=== PATIENT | female | born 2000 | race Caucasian/White ===

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

== ENCOUNTER 2025-05-20 12:31 | Emergency (ER) | payer OTHER, SELFPAY ==
[2025-05-20] VITALS (10 sets, daily range): BP systolic 109–124; BP diastolic 66–75; PULSE 94–122; RESP 17–21; TEMP 37.1; O2SAT 95–99; BMI 20.2
[2025-05-20 13:19] LABS: Culture Indicated Urine Cult Not Indicated; Ictotest Urine Negative (Negative)
--- NOTE | 2025-05-20 13:22 | ED_ITS ---
HPI - Abdominal Pain General Chief Complaint: Abdominal Pain Stated Complaint: constipated 6days blood in stool rash chills Time Seen by Provider: 05/20/25 13:22 Source: patient Mode of arrival: Ambulatory History of Present Illness HPI narrative: Patient is a 25-year-old female with a past medical history of ulcerative colitis currently on budesonide coming in for abdominal pain. States she is having a flare-up, endorses abdominal pain nausea chills and some bright red blood per rectum. Patient states she normally is on Stelara but has been off of it secondary to insurance issues, states that she last took it 2-1/2 months ago. However she states that this has been resolved and is supposed to get it in the mail in the next few weeks. She also states some chills and intermittent fevers. At time of evaluation however patient afebrile nontoxic, she denies any surgeries to the abdomen. Related Data Home Medications ?Medication ?Instructions ?Recorded ?Confirmed mesalamine 400 mg capsule (with 400 mg PO QPM 11/09/18 11/09/18 delayed release tablets inside) Previous Rx's ?Medication ?Instructions ?Recorded typhoid vaccin,live,attenuated 2 See Rx Instructions P O .COMPLEX #4 11/09/18 billion unit capsule,delayed caps release ondansetron 4 mg disintegrating 4 mg PO Q8H PRN nausea and 05/20/25 tablet vomiting 1 week #21 tabs prednisone 20 mg tablet 40 mg (2 x 20 mg) PO DAILY 2 weeks 05/20/25 #28 tabs Allergies Allergy/AdvReac Type Severity Reaction Status Date / Time No Known Drug Allergies Allergy Verified 05/20/25 12:50 Review of Systems Review of Systems Narrative: General: Denies fever, chills, weight loss HEENT: Denies headache, eye drainage, eye irritation, head trauma, sore throat, voice change Cardiovascular: Denies any chest pain, palpitations, tachycardia Respiratory: Denies any shortness of breath, cough, wheeze, stridor GI/: Positive abdominal pain, nausea, vomiting, bright red blood per rectum, denies melanotic stools, urinary frequency, urinary retention, dysuria, hematuria MSK: Denies any joint pain, muscle pains, swelling Skin: Denies any rashes, lesions, discoloration Neuro: Denies any headache, lightheadedness, dizziness, fainting, weakness Psych: Denies SI/HI Patient History Medical History (Updated 05/20/25 @ 14:54 by Arnav Marrero DO) Ulcerative colitis Social History Smoking Status: Never smoker Smoking Status: Never smoker Exam Narrative Exam Narrative: General: Cooperative, well-developed, not in acute distress HEENT: Normocephalic, atraumatic, PERRLA, normal sclera, eyelids normal Neck: Active full range of motion, atraumatic Chest: Normal to inspection, negative crepitus, no overlying erythema ecchymosis Respiratory: Normal respiratory effort, not in acute respiratory distress, clear to auscultation bilaterally negative cough, wheeze, tachypnea, rhonchi, rales Cardiology: Regular rate rhythm negative gallop, murmur, rubs GI/: No tenderness to palpation, soft, non rigid, normal to inspection, exam deferred MSK: Full active range of motion in all 4 extremities, atraumatic, no tenderness to palpation of any bony prominences Skin: No rashes or lesions noted Neuro: Alert awake oriented x3, moves all 4 extremities spontaneously, cranial nerves intact, able to answer all questions appropriately follows commands appropriately Psych: Cooperative, negative suicidal or homicidal ideations Initial Vital Signs Initial Vital Signs: Vital Signs Temperature 98.8 F 05/20/25 12:46 Pulse Rate 122 H 05/20/25 12:46 Respiratory Rate 18 05/20/25 12:46 Blood Pressure 112/68 05/20/25 12:46 Pulse Oximetry 96 05/20/25 12:46 Oxygen Delivery Method Room Air 05/20/25 12:46 Course Orders Ordered: ED Orders 05/20/25 13:00 Ictotest Urine Stat Urine Microscopic Stat 05/20/25 13:24 CT abdomen pelvis w con Stat 05/20/25 13:28 GI Panel (Film Array) Stat 05/20/25 13:36 Complete Blood Count AUTO DIFF Stat Comprehensive Metabolic Panel Stat Lactate (Lactic Acid) Stat Lipase Stat MAG [Magnesium] Stat 05/20/25 13:48 Respiratory Panel (Film Array) Stat 05/20/25 14:20 Blood Culture Stat Ondansetron HCl (Ondansetron 4 Mg/2 Ml Inj) 4 mg IV NOW PRN PRN Reason: Nausea And Vomiting Ondansetron HCl (Ondansetron 4 Mg Odt) 4 mg PO NOW PRN PRN Reason: Nausea And Vomiting Discontinued Medications Sodium Chloride (Normal Saline 0.9%) 1,000 mls @ 1,000 mls/hr IV BOLUS ONE Stop: 05/20/25 14:23 Last Admin: 05/20/25 13:44 Dose: 1,000 mls/hr Documented By: WINNIE Vital Signs Vital signs: Vital Signs - 8 hr 05/20/25 12:46 05/20/25 13:53 05/20/25 13:58 Temperature 98.8 F Pulse Rate 122 H 114 H Respiratory Rate 18 Blood Pressure 112/68 124/72 Pulse Oximetry 96 98 Oxygen Delivery Method Room Air 05/20/25 13:58 05/20/25 14:00 05/20/25 14:00 Temperature Pulse Rate 106 H 98 H Respiratory Rate 19 19 Blood Pressure 116/69 Pulse Oximetry 98 99 Oxygen Delivery Method Room Air 05/20/25 14:30 05/20/25 14:30 Temperature Pulse Rate 98 H Respiratory Rate 17 Blood Pressure 109/73 Pulse Oximetry 96 Oxygen Delivery Method MDM - Abdominal Pain Lab Data 05/20/25 13:36 05/20/25 13:36 Labs: Lab Results 05/20/25 05/20/25 05/20/25 Range/Units 13:00 13:36 13:48 WBC 16.6 H (4.5-11.0) X10^3/uL RBC 4.92 (4.0-5.2) X10^6/uL Hgb 13.1 (12.0-16.0) g/dL Hct 38.2 (36-46) % MCV 77.7 L (80-100) fL MCH 26.6 (26-34) PG MCHC 34.3 (30-36) % RDW 13.3 (11.6-14.8) % Plt Count 295 (150-400) X10^3/uL Neut % (Auto) 81.3 H (50-75) % Lymph % (Auto) 7.5 L (25-40) % [place] % (Auto) 6.6 (3-14) % Eos % (Auto) 3.2 (2-4) % Baso % (Auto) 1.4 (0-2) % Neut # (Auto) 72797 H (0095-6874) /uL Lymph # (Auto) 1200 (2580-5584) /uL [place] # (Auto) 1100 H (0-900) /uL Eos # (Auto) 500 H (0-450) /uL Baso # (Auto) 200 H (0-100) /uL Sodium 132 L (137-145) mmol/L Potassium 3.3 L (3.4-5.1) mmol/L Chloride 97 L (98-107) mmol/L Carbon Dioxide 23 (22-32) mmol/L BUN 8 (7-17) mg/dL Creatinine 0.59 (0.52-1.04) mg/dL Estimated GFR > 60 (>60) mL/min BUN/Creatinine Ratio 13.6 (6-22) Glucose 99 (70-99) mg/dL Lactate 0.7 (0.7-2.1) mmol/L Calcium 8.5 (8.4-10.2) mg/dL Magnesium 1.8 (1.6-2.3) mg/dL Total Bilirubin 0.6 (0.2-1.3) mg/dL AST 22 (14-36) IU/L ALT 12 (<35) IU/L Alkaline Phosphatase 88 (38-126) U/L Total Protein 7.3 (6.3-8.2) g/dL Albumin 3.7 (3.5-5.0) g/dL Globulin 3.6 (1.7-4.1) g/dL Albumin/Globulin Ratio 1.0 (1.0-2.8) Lipase 33 (23-300) U/L Ur Bilirubin Confirm Negative (Negative) Urine RBC 0-1/hpf (0-5/HPF) Urine WBC 0-1/hpf (0-5/HPF) Ur Squamous Epith Cells 0-1 /hpf (0-5/HPF) Amorphous Sediment 1+ Urine Bacteria Occasional (0-1) (None) Urine Mucus 4+ H (Negative) Ur Culture Indicated? Cult not indicated Vol Urine Centrifuged 10ml (spun) Chlamy pneumoniae PCR Not detected (Not Detect) Adenovirus (PCR) Not detected (Not Detect) B. pertussis DNA (PCR) Not detected (Not Detect) B.parapertussis DNA PCR Not detected (Not Detecte) Coronavirus OC43 (PCR) Not detected (Not Detect) Coronavirus HKU1 (PCR) Not detected (Not Detect) Coronavirus 229E (PCR) Not detected (Not Detect) SARS-CoV-2 (PCR) Not detected (Not Detecte) Coronavirus NL63 (PCR) Not detected (Not Detect) Human Metapneumovir PCR Not detected (Not Detect) Influenza Type A (PCR) Not detected (Not Detect) Influenza Type B (PCR) Not detected (Not Detect) M. pneumoniae (PCR) Not detected (Not Detect) Parainfluenza 1 (PCR) Not detected (Not Detect) Parainfluenza 2 (PCR) Not detected (Not Detect) Parainfluenza 3 (PCR) Not detected (Not Detect) Parainfluenza 4 (PCR) Not detected (Not Detect) RSV (PCR) Not detected (Not Detect) Entero/Rhino (PCR) Not detected (Not Detect) Point of care testing: Point of Care Testing Test Results Negative Urine Dip Bedside Urine Glucose Negative Bedside Urine Bilirubin + 1 Bedside Urine Ketone +++ 80 Urine Specific [place] 1.020 Bedside Urine Occult Blood +/- Bedside Urine pH 6.0 Bedside Urine Protein + 30 Bedside Urine Urobilinogen +/- 1mg Bedside Urine Nitrite - Negative Bedside Urine Leukocytes - Negative Esterase MDM Narrative Medical decision making narrative: 25-year-old female with a history of ulcerative colitis currently on budesonide comes into the ED from home for evaluation multiple complaints. Patient states that she has been having a flare-up over the past 3 days has been having some bright red blood per rectum with mucus typical of an ulcerative colitis flare. She states that she did contact her GI doctor does have Stelara on the way. States that this is helped her in the past but has been off of it for a proximally 2-1/2 months secondary to issues with insurance. She also states that she has been having fevers and chills for the past 3 days as well. She denies any headache visual disturbances chest pain shortness of breath nausea vomiting or any other GI/ symptoms at this time. Patient's CT scan consistent with colitis no other acute findings, patient does have a white count of 16.6, otherwise the remainder of her lab work is unremarkable. Urinalysis not consistent with acute urinary tract infection. 1453: Did discuss with sanding machine operator or tender Dr. Espana, does agree that patient's current imaging and lab work more likely secondary to ulcerative colitis flare- up, does agree should rule out any other infectious causes. However given the fact that CT scan showing more colitis patient should be started on prednisone 40 mg daily for the next 2 weeks. 1437: Patient re-evaluated no new complaints at this time, informed her of her workup has consistent more so with the colitis. Patient's GI panel negative, we will discharge patient home with prednisone and instructed patient to follow up with her GI doctor and primary care doctor. Strict return precautions given she verbalized understanding of this and agrees to being discharged home with outpatient follow up Discharge Plan Departure Patient Disposition: Home Clinical Impression: Ulcerative colitis Activity Restrictions/Additional Instructions: Please follow up with your primary care doctor and your sanding machine operator or tender Please read the discharge instructions sheet carefully and bring all papers to all doctor follow-up visits, as it may contain information that your doctor may want to see. Disease processes change and evolve, if your symptoms worsen or if you develop any new symptoms that are concerning to you please return for evaluation. Your evaluation today does not show any evidence of any life- threatening/serious illnesses requiring admission to the hospital or surgery. Please follow-up with your doctor for re-evaluation in approximately 1 day. Seek immediate medical attention for any worrisome symptoms. *If you do not have a primary care provider please contact the [facility] Resource line at [phone]. They will ask some questions about your medical history and help get you set up with a doctor in the community. Prescriptions: New prednisone 20 mg tablet 40 mg PO DAILY 14 Days Qty: 28 0RF ondansetron 4 mg tablet,disintegrating 4 mg PO Q8H PRN (Reason: nausea and vomiting) 7 Days Qty: 21 0RF No Action mesalamine 400 mg capsule (with del rel tablets) 400 mg PO QPM typhoid vaccin,live,attenuated 2 billion unit capsule,delayed release(DR/EC) See Rx Instructions PO .COMPLEX Qty: 4 0RF Dose Instruction: take 1 cap every other day for 4 doses (days 1,3,5,7); finish at least 1wk before exposure PO Rx Instructions: take 1 cap every other day for 4 doses (days 1,3,5,7); finish at least 1wk before exposure PO Referrals: Shelby Jean MD [Primary Care Provider, Family Practice] Stand Alone Forms: Patient Portal/API
--- NOTE | 2025-05-20 13:24 | DI.CT.S_ITS ---
PROCEDURE: CT ABDOMEN PELVIS W CON INDICATIONS: Abdominal pain, history of ulcerative colitis TECHNIQUE: After the administration of intravenous contrast, axial sections acquired from the lung bases to the pubic symphysis. Coronal and sagittal reformats were performed. For radiation dose reduction, the following was used: automated exposure control, adjustment of mA and/or kV according to patient size. COMPARISON: None. FINDINGS: Image quality: Diagnostic. Lower Chest: No significant findings. ABDOMEN: Liver: No solid mass. Gallbladder: No radiopaque gallstones or wall thickening. Biliary ducts: No biliary dilation. Pancreas: No ductal dilation. Spleen: Size is within normal limits. Adrenal Glands: No adrenal nodules. Kidneys and Ureters: No hydronephrosis. No solid mass. No complex renal cystic lesion which requires follow up. Stomach and Bowel: Bowel is of normal caliber without obstruction. The left lashell from the midtransverse colon distally demonstrates wall thickening and mucosal hyperemia which is circumferential. Peritoneum: No abnormal intraperitoneal fluid. No free air. Numerous scattered tiny mesenteric lymph nodes are shown. Ventral Wall: No significant ventral hernia. Abdominal Nodes: No retroperitoneal or mesenteric adenopathy by size criteria. Vessels: Aorta and inferior vena cava are normal in size. PELVIS: Pelvic Organs: Unremarkable. Bladder: No bladder wall thickening, accounting for underdistention. Pelvic Nodes: No enlarged lymph nodes. Miscellaneous: No inguinal hernias are seen. Bones: No aggressive osseous abnormality. IMPRESSION: Findings of colitis consistent with the patient's given history. Dictated by: Chel Bell M.D. on 05/20/2025 at 12:53 Approved by: Chel Bell M.D. on 05/20/2025 at 12:57
[2025-05-20] MEDS: SODIUM CHLORIDE 0.9% 1,000 ML 1000 ML IV (13:44)
[2025-05-20 13:51] LABS: Add Manual Diff / Slide Review NO; Hematocrit 38.2 % (36-46); Hemoglobin 13.1 g/dL (12.0-16.0); Lymphocytes Absolute Auto 1200 /uL (1100-4500); Mean Corpuscular HGB Conc 34.3 % (30-36); Mean Corpuscular Hemoglobin 26.6 PG (26-34); Mean Corpuscular Volume 77.7 fL (80-100); Platelet Count 295 X10^3/uL (150-400)
[2025-05-20 14:02] LABS: Lactate (Lactic Acid) 0.7 mmol/L (0.7-2.1); Magnesium 1.8 mg/dL (1.6-2.3)
[2025-05-20 14:03] LABS: Alanine Aminotransferase 12 IU/L (<35); Albumin 3.7 g/dL (3.5-5.0); Albumin Globulin Ratio 1.0 (1.0-2.8); Alkaline Phosphatase 88 U/L (38-126); Blood Urea Nitrogen 8 mg/dL (7-17); Calcium 8.5 mg/dL (8.4-10.2); Carbon Dioxide 23 mmol/L (22-32); Chloride 97 mmol/L (98-107); Estimated Glomerular Filt Rate > 60 mL/min (>60); Globulin 3.6 g/dL (1.7-4.1); Glucose 99 mg/dL (70-99); HEMOLYSIS 17 (0-50); Lipase 33 U/L (23-300); Potassium 3.3 mmol/L (3.4-5.1); Sodium 132 mmol/L (137-145); Total Protein 7.3 g/dL (6.3-8.2)
[2025-05-20 14:41] LABS: Coronavirus NL 63 Not Detected (Not Detect); SARS- CoV-2 Not Detected (Not Detecte)
--- NOTE | 2025-05-20 14:54 | PC.NURSE ---
TRICK RODEO RIDER Note: Consult with GI, Dr. Espana with [facility] completed.
[2025-05-20 16:19] LABS: Clostridium difficile toxin AB Not Detected (Not Detect); Enteroaggregative E.coli Not Detected (Not Detect); Enteropathogenic E.coli Not Detected (Not Detect); Enterotoxigenic E.coli It/st Not Detected (Not Detect); Plesiomonsa shigelloides Not Detected (Not Detect); Shiga-like toxin-prod E.coli Not Detected (Not Detect)
== END 2025-05-20 16:47 | disposition home or self-care (01) ==
PROVIDERS: Emergency Provider Student in an Organized Health Care Education/Training Program; PCP Family Medicine
DX: K51.90 Ulcerative colitis, unspecified, without complications (principal); K62.5 Hemorrhage of anus and rectum
CPT/HCPCS: 36415; 74177; 80053; 81003; 81015; 81025; 83605; 83690; 83735; 85025; 87040; 87507; 87633; 96360; 99284; Q9967

== ENCOUNTER 2025-06-11 16:23 | Emergency (ER) | payer OTHER, SELFPAY ==
[2025-06-11] VITALS (16 sets, daily range): BP systolic 81–119; BP diastolic 53–77; PULSE 91–140; RESP 16–25; TEMP 36.8; O2SAT 97–100; BMI 18.1
[2025-06-11 16:47] LABS: Add Manual Diff / Slide Review NO; Hematocrit 32.8 % (36-46); Hemoglobin 11.0 g/dL (12.0-16.0); Lymphocytes Absolute Auto 2600 /uL (1100-4500); Mean Corpuscular HGB Conc 33.6 % (30-36); Mean Corpuscular Hemoglobin 25.4 PG (26-34); Mean Corpuscular Volume 75.8 fL (80-100); Platelet Count 508 X10^3/uL (150-400)
[2025-06-11 16:58] LABS: Alanine Aminotransferase 17 IU/L (<35); Albumin 3.4 g/dL (3.5-5.0); Albumin Globulin Ratio 0.9 (1.0-2.8); Alkaline Phosphatase 100 U/L (38-126); Blood Urea Nitrogen 5 mg/dL (7-17); Calcium 8.3 mg/dL (8.4-10.2); Carbon Dioxide 28 mmol/L (22-32); Chloride 94 mmol/L (98-107); Estimated Glomerular Filt Rate > 60 mL/min (>60); Globulin 3.7 g/dL (1.7-4.1); Glucose 118 mg/dL (70-99); HEMOLYSIS < 15 (0-50); Lipase 39 U/L (23-300); Potassium 3.7 mmol/L (3.4-5.1); Sodium 129 mmol/L (137-145); Total Protein 7.1 g/dL (6.3-8.2)
--- NOTE | 2025-06-11 16:58 | PC.NURSE ---
Pt presents to ER after going to urgent care after a month of worsening ulcerative colitis symptoms. Due to recent changes in insurance pt no longer able to take Stellara and was switched to prednisone. Pt reports worsening diarrhea for the month during which her medications were changed and says she has been having 20+ episodes of diarrhea daily. Pt reports she stopped taking the steroids ~3days ago and went to urgent care this morning d/t concern for a hemorrhoid that is causing her 7/10 pain. Urgent care told her to come to the ED.
--- NOTE | 2025-06-11 17:00 | EKG_ITS ---
[address] [address] Test Date: 2025-06-11 Pat Name: Henrik Schmid Department: Room: Gender: Female Nylon Mender: : 2000 Requested By: Order Number: [id number] Reading MD: Ghulam Jay Measurements Intervals [place] Rate: 102 P: 63 MS: 140 QRS: 70 QRSD: 80 T: 22 QT: 346 QTc: 450 Interpretive Statements Sinus tachycardia Electronically Signed On 06-13-2025 8:36:57 PDT by Ghulam Jay
--- NOTE | 2025-06-11 17:18 | ED.DIZZY ---
HPI - Dizziness General Chief Complaint: Dizziness Stated Complaint: dizziness Time Seen by Provider: 06/11/25 17:13 Source: patient and family Mode of arrival: Ambulatory History of Present Illness HPI Narrative: 25-year-old female history of ulcerative colitis previously on Stelara due to insurance reasons unable to fill the prescription having abdominal pain rectal bleeding but she also mentions she has had a hemorrhoid for few weeks now so she is unsure if wiping the toilet paper with tissue paper it is coming from the hemorrhoids or from the ulcerative colitis. She also reports lightheaded, dizziness, when she stands up and but denies any chest pain, diaphoresis, nausea, vomiting, back pain, urinary complaints, fever, chills, body aches. Other than what is stated 14 point review of system is negative. Related Data Home Medications ?Medication ?Instructions ?Recorded ?Confirmed prednisone 20 mg tablet 40 mg PO DAILY 06/06/25 06/11/25 ustekinumab 90 mg/mL subcutaneous mg SUBCUT 06/06/25 06/11/25 syringe (Stelara) Previous Rx's ?Medication ?Instructions ?Recorded hydrocortisone 1 %-pramoxine 1 % 1 applic MS QID PRN hemorrhoids 06/06/25 rectal foam (Proctofoam HC) #10 grams hydrocortisone acetate 25 mg 25 mg MS DAILY #12 ea 06/11/25 rectal suppository (Anusol-HC) Allergies Allergy/AdvReac Type Severity Reaction Status Date / Time No Known Drug Allergies Allergy Verified 06/11/25 16:28 Review of Systems Review of Systems ROS Unobtainable: All systems reviewed & are unremarkable except as noted in HPI and below Patient History Medical History (Updated 06/11/25 @ 20:35 by Alex Contreras DO) Ulcerative colitis Social History Smoking Status: Never smoker Smoking Status: Never smoker Exam Narrative Exam Narrative: GENERAL: [25] year old patient appears stated age. Well-developed patient, in mild distress. HEAD: Atraumatic. Normocephalic. EYES: Pupils equal round and reactive. Extraocular motions intact. No scleral icterus. No injection or drainage. ENT: Nose without bleeding, purulent drainage. Throat without erythema, tonsillar hypertrophy or exudate. Airway patent. NECK: Trachea midline. Non tender CARDIOVASCULAR: Tachycardic Regular rate and rhythm without murmurs, gallops, or rubs. RESPIRATORY: Clear to auscultation. Breath sounds equal bilaterally. No wheezes, rales, or rhonchi. GASTROINTESTINAL: Abdomen soft, non-tender, nondistended. EXTREMITIES: No edema or joint tenderness. Rectal: External hemorrhoid but not thrombosed BACK: Nontender without deformity or crepitance. No flank tenderness. NEURO: AOx3. SKIN: No rash or erythema of visible areas Initial Vital Signs Initial Vital Signs: Vital Signs Temperature 98.3 F 06/11/25 16:25 Pulse Rate 121 H 06/11/25 16:25 Respiratory Rate 20 06/11/25 16:25 Blood Pressure 105/66 06/11/25 16:25 Pulse Oximetry 100 06/11/25 16:25 Oxygen Delivery Method Room Air 06/11/25 16:25 Course Orders Ordered: ED Orders 06/11/25 16:28 Complete Blood Count AUTO DIFF Stat Comprehensive Metabolic Panel Stat D Dimer Stat Lipase Stat 06/11/25 16:31 EKG-12 Lead Stat 06/11/25 17:25 EKG-12 Lead Stat 06/11/25 17:33 Urine Culture Stat Urine Microscopic Stat 06/11/25 18:02 CT angio chest PE protocol Stat Ondansetron HCl (Ondansetron 4 Mg/2 Ml Inj) 4 mg IV NOW PRN PRN Reason: Nausea And Vomiting Ondansetron HCl (Ondansetron 4 Mg Odt) 4 mg PO NOW PRN PRN Reason: Nausea And Vomiting Discontinued Medications Lactated Ringer's (Lactated Ringers) 1,000 mls @ 1,000 mls/hr IV BOLUS ONE Stop: 06/11/25 18:24 Last Infusion: 06/11/25 19:04 Dose: Infused Documented By: Admin: 06/11/25 17:29 Dose: 1,000 mls/hr Documented By: EMMA Lactated Ringer's (Lactated Ringers) 1,000 mls @ 1,000 mls/hr IV BOLUS ONE Stop: 06/11/25 20:03 Last Admin: 06/11/25 19:09 Dose: 1,000 mls/hr Documented By: EMMA Vital Signs Vital signs: Vital Signs - 8 hr 06/11/25 16:25 06/11/25 16:47 06/11/25 16:48 Temperature 98.3 F Pulse Rate 121 H 107 H Pulse Rate [Orthostatic Lying] Pulse Rate [Orthostatic Sitting] Pulse Rate [Orthostatic Standing] Respiratory Rate 20 Blood Pressure 105/66 111/73 Blood Pressure [Orthostatic Lying] Blood Pressure [Orthostatic Sitting] Blood Pressure [Orthostatic Standing] Pulse Oximetry 100 99 Oxygen Delivery Method Room Air 06/11/25 16:48 06/11/25 17:00 06/11/25 17:00 Temperature Pulse Rate 105 H 100 H Pulse Rate [Orthostatic Lying] Pulse Rate [Orthostatic Sitting] Pulse Rate [Orthostatic Standing] Respiratory Rate 21 22 Blood Pressure 105/72 Blood Pressure [Orthostatic Lying] Blood Pressure [Orthostatic Sitting] Blood Pressure [Orthostatic Standing] Pulse Oximetry 99 97 Oxygen Delivery Method 06/11/25 17:22 06/11/25 17:22 06/11/25 17:23 Temperature Pulse Rate 99 H 127 H Pulse Rate [Orthostatic Lying] Pulse Rate [Orthostatic Sitting] Pulse Rate [Orthostatic Standing] Respiratory Rate Blood Pressure 105/66 Blood Pressure [Orthostatic Lying] Blood Pressure [Orthostatic Sitting] Blood Pressure [Orthostatic Standing] Pulse Oximetry 99 98 Oxygen Delivery Method 06/11/25 17:23 06/11/25 17:24 06/11/25 17:24 Temperature Pulse Rate 139 H Pulse Rate [Orthostatic Lying] Pulse Rate [Orthostatic Sitting] Pulse Rate [Orthostatic Standing] Respiratory Rate Blood Pressure 103/57 L 81/53 L Blood Pressure [Orthostatic Lying] Blood Pressure [Orthostatic Sitting] Blood Pressure [Orthostatic Standing] Pulse Oximetry 98 Oxygen Delivery Method 06/11/25 17:25 06/11/25 17:34 06/11/25 17:42 Temperature Pulse Rate 113 H Pulse Rate [Orthostatic Lying] 105 H Pulse Rate [Orthostatic Sitting] 130 H Pulse Rate [Orthostatic Standing] 140 H Respiratory Rate Blood Pressure 115/75 Blood Pressure [Orthostatic Lying] 105/66 Blood Pressure [Orthostatic Sitting] 103/57 L Blood Pressure [Orthostatic Standing] 81/53 L Pulse Oximetry 99 Oxygen Delivery Method 06/11/25 17:42 06/11/25 18:00 06/11/25 18:00 Temperature Pulse Rate 102 H 91 H Pulse Rate [Orthostatic Lying] Pulse Rate [Orthostatic Sitting] Pulse Rate [Orthostatic Standing] Respiratory Rate 25 H Blood Pressure 112/75 Blood Pressure [Orthostatic Lying] Blood Pressure [Orthostatic Sitting] Blood Pressure [Orthostatic Standing] Pulse Oximetry 99 100 Oxygen Delivery Method 06/11/25 18:25 06/11/25 18:25 06/11/25 18:30 Temperature Pulse Rate 99 H Pulse Rate [Orthostatic Lying] Pulse Rate [Orthostatic Sitting] Pulse Rate [Orthostatic Standing] Respiratory Rate 18 Blood Pressure 119/71 109/68 Blood Pressure [Orthostatic Lying] Blood Pressure [Orthostatic Sitting] Blood Pressure [Orthostatic Standing] Pulse Oximetry 100 Oxygen Delivery Method 06/11/25 18:30 06/11/25 19:00 06/11/25 19:00 Temperature Pulse Rate 93 H 96 H Pulse Rate [Orthostatic Lying] Pulse Rate [Orthostatic Sitting] Pulse Rate [Orthostatic Standing] Respiratory Rate 18 Blood Pressure 113/77 Blood Pressure [Orthostatic Lying] Blood Pressure [Orthostatic Sitting] Blood Pressure [Orthostatic Standing] Pulse Oximetry 100 99 Oxygen Delivery Method MDM - Dizziness Lab Data 06/11/25 16:28 06/11/25 16:28 Labs: Lab Results 06/11/25 06/11/25 Range/Units 16:28 17:33 WBC 14.8 H (4.5-11.0) X10^3/uL RBC 4.33 (4.0-5.2) X10^6/uL Hgb 11.0 L (12.0-16.0) g/dL Hct 32.8 L (36-46) % MCV 75.8 L (80-100) fL MCH 25.4 L (26-34) PG MCHC 33.6 (30-36) % RDW 13.4 (11.6-14.8) % Plt Count 508 H (150-400) X10^3/uL Neut % (Auto) 66.2 (50-75) % Lymph % (Auto) 17.8 L (25-40) % [place] % (Auto) 14.0 (3-14) % Eos % (Auto) 1.6 L (2-4) % Baso % (Auto) 0.4 (0-2) % Neut # (Auto) 9800 H (1363-2148) /uL Lymph # (Auto) 2600 (1741-4368) /uL [place] # (Auto) 2100 H (0-900) /uL Eos # (Auto) 200 (0-450) /uL Baso # (Auto) 100 (0-100) /uL D-Dimer 1065 H (<500) ng/ml Sodium 129 L (137-145) mmol/L Potassium 3.7 (3.4-5.1) mmol/L Chloride 94 L (98-107) mmol/L Carbon Dioxide 28 (22-32) mmol/L BUN 5 L (7-17) mg/dL Creatinine 0.55 (0.52-1.04) mg/dL Estimated GFR > 60 (>60) mL/min BUN/Creatinine Ratio 9.1 (6-22) Glucose 118 H (70-99) mg/dL Calcium 8.3 L (8.4-10.2) mg/dL Total Bilirubin 0.5 (0.2-1.3) mg/dL AST 25 (14-36) IU/L ALT 17 (<35) IU/L Alkaline Phosphatase 100 (38-126) U/L Total Protein 7.1 (6.3-8.2) g/dL Albumin 3.4 L (3.5-5.0) g/dL Globulin 3.7 (1.7-4.1) g/dL Albumin/Globulin Ratio 0.9 L (1.0-2.8) Lipase 39 (23-300) U/L Urine RBC None seen (0-5/HPF) Urine WBC None seen (0-5/HPF) Ur Squamous Epith Cells 0-1 /hpf (0-5/HPF) Urine Bacteria None seen (None) Vol Urine Centrifuged 10ml (spun) Point of Care Testing Test Results Negative Urine Dip Bedside Urine Glucose Negative Bedside Urine Bilirubin - Negative Bedside Urine Ketone - Negative Urine Specific [place] 1.005 Bedside Urine Occult Blood - Negative Bedside Urine pH 7.0 Bedside Urine Protein - Negative Bedside Urine Urobilinogen - Negative Bedside Urine Nitrite - Negative Bedside Urine Leukocytes - Negative Esterase Imaging Data CT scan - chest: Radiologist's Impression: [address] [address] [address] Scan Report Signed Patient: Henrik Schmid MR#: [id number] : 2000 Acct:[id number] Age/Sex: 25 / F Date of Service: 06/11/25 Loc: ED Accession Number: [id number] Procedure: CT angio chest PE protocol Ordering Provider: Alex Contreras D.O. PROCEDURE: CT ANGIO CHEST PE PROTOCOL INDICATIONS: syncope and elevated dimer TECHNIQUE: After the administration of intravenous contrast, 2 mm thick sections acquired from the pulmonary apices to the posterior costophrenic angles. 3-dimensional maximum intensity projection (MIP) coronal and sagittal reformats were then acquired through the thorax. For radiation dose reduction, the following was used: automated exposure control, adjustment of mA and/or kV according to patient size. COMPARISON: None. FINDINGS: Image quality: Diagnostic. Pulmonary arteries: Pulmonary arteries are normal in size, and demonstrate no intraluminal filling defects to suggest central pulmonary embolism. Lower Neck: No enlarged lymph nodes. Thyroid: No thyroid nodules which require sonographic follow up, per consensus guidelines. Axillae: No enlarged lymph nodes. Chest Wall: Unremarkable. Bones: Unremarkable. Lungs and Pleura: No pneumothorax or pleural effusions. No consolidation or suspicious nodules. Heart: Heart size is normal. No pericardial effusion. Thoracic Vessels: No aortic aneurysm. Mediastinum and Lucero: No enlarged lymph nodes. Esophagus: No wall thickening. No hiatal hernia. Upper Abdomen: Visualized upper abdomen solid organs and bowel loops appear normal. IMPRESSION: No pulmonary embolus. No acute cardiopulmonary process. ECG Data Interpretation: Sinus Tach HR 102 MS 140 QRS [address]-t wave change NO previous EKG to compare MDM Narrative Medical decision making narrative: All lab work, vital signs, nurse triage note, medication list, previous ER visits, and all imaging studies reviewed. WBC 14.8 hemoglobin 11 platelets 508 dimer 1065 sodium 129 potassium 3.7 chloride 94 CO2 28 BUN 5 creatinine 0.55 glucose 118 urine normal. CTA showed no pulmonary embolus no acute cardiopulmonary process. Patient orthostatic from supine and sitting to standing dropping 20 points systolic given 2 L of LR here. Last dose of Stelara was back in January GI doctors trying to get Stelara approved for her as it is an injection every 2 months. Differential diagnosis orthostatic hypotension, PE, dehydration, hypoglycemia, ulcerative colitis, steroid induced leukocytosis from recent prednisone use. DC home on Anusol follow up with general surgeon referral. Patient will follow up with GI or possible infusion this with Stelara pending insurance approval. Discharge Plan Departure Patient Disposition: Home Clinical Impression: Orthostatic hypotension, Acute hyponatremia Hemorrhoid Qualifiers: Hemorrhoid type: first degree Qualified Code(s): K64.0 - First degree hemorrhoids Instructions: Orthostatic Hypotension Activity Restrictions/Additional Instructions: Return with new or worsening symptoms. Keep hydrated. Take your medicines directed. Follow up with Dr. Barreto or Dr. Carbajal regarding hemorrhoids call office for appointment. ? ? Prescriptions: New hydrocortisone acetate [Anusol-HC] 25 mg suppository 25 mg MS DAILY Qty: 12 0RF No Action ustekinumab [Stelara] 90 mg/mL syringe SUBCUT Patient Comments: [NO ORIGINAL SIG] prednisone 20 mg tablet 40 mg PO DAILY Proctofoam HC 1-1 % foam 1 applic MS QID PRN (Reason: hemorrhoids) Qty: 10 0RF Referrals: Gatito Barreto MD [Physician, General Surgery] Shelby Jean MD [Primary Care Provider, Family Practice] Stand Alone Forms: Patient Portal/API
[2025-06-11] MEDS: LACTATED RINGERS 1,000 ML 1000 ML IV ×2 (17:29→19:09)
--- NOTE | 2025-06-11 18:02 | DI.CT.S_ITS ---
PROCEDURE: CT ANGIO CHEST PE PROTOCOL INDICATIONS: syncope and elevated dimer TECHNIQUE: After the administration of intravenous contrast, 2 mm thick sections acquired from the pulmonary apices to the posterior costophrenic angles. 3-dimensional maximum intensity projection (MIP) coronal and sagittal reformats were then acquired through the thorax. For radiation dose reduction, the following was used: automated exposure control, adjustment of mA and/or kV according to patient size. COMPARISON: None. FINDINGS: Image quality: Diagnostic. Pulmonary arteries: Pulmonary arteries are normal in size, and demonstrate no intraluminal filling defects to suggest central pulmonary embolism. Lower Neck: No enlarged lymph nodes. Thyroid: No thyroid nodules which require sonographic follow up, per consensus guidelines. Axillae: No enlarged lymph nodes. Chest Wall: Unremarkable. Bones: Unremarkable. Lungs and Pleura: No pneumothorax or pleural effusions. No consolidation or suspicious nodules. Heart: Heart size is normal. No pericardial effusion. Thoracic Vessels: No aortic aneurysm. Mediastinum and [place]: No enlarged lymph nodes. Esophagus: No wall thickening. No hiatal hernia. Upper Abdomen: Visualized upper abdomen solid organs and bowel loops appear normal. IMPRESSION: No pulmonary embolus. No acute cardiopulmonary process. Dictated by: Steve Naylor M.D. on 06/11/2025 at 18:31 Approved by: Steve Naylor M.D. on 06/11/2025 at 18:35
== END 2025-06-11 21:00 | disposition home or self-care (01) ==
PROVIDERS: Emergency Provider Family Medicine; PCP Family Medicine
DX: I95.1 Orthostatic hypotension (principal); E87.1 Hypo-osmolality and hyponatremia; K64.0 First degree hemorrhoids
CPT/HCPCS: 36415; 71275; 80053; 81003; 81015; 81025; 83690; 85025; 85379; 87086; 93005; 96360; 96361; 99284; J7120; Q9967

== ENCOUNTER → 2025-07-28 12:52 | Outpatient (CLI) | payer OTHER, SELFPAY ==
--- NOTE | 2025-07-28 12:53 | DI.MRI.S_ITS ---
PROCEDURE: MR ENTEROGRAPHY PROTOCOL INDICATIONS: Noninfective gastroenteritis and colitis, unspecif TECHNIQUE: After the ingestion of oral contrast, coronal and axial HASTE, coronal 2-D FLASH in-and [id number] sequences. After the administration of contrast, coronal and axial VIBE or 2-D FLASH with fat saturation sequences acquired through the abdomen and pelvis. Optional diffusion weighted imaging and ADC may be performed. COMPARISON: [facility], CT, CT ABDOMEN PELVIS W CON, 05/20/2025, 13:32. FINDINGS: Image quality: Diagnostic Lower chest: Not fully seen on this enterography protocol study Liver: Unremarkable Gallbladder and biliary system: Unremarkable, nondilated Pancreas: No ductal dilation Spleen: Prominent size at 13 cm Adrenals: No discrete nodules Kidneys: No solid mass or hydronephrosis Vessels and lymph nodes: The main portal vein appears patent. No abdominal aortic aneurysm. No lymph nodes enlarged by size criteria. Bowel and peritoneum: No drainable abscess or ascites. No small bowel obstruction. The terminal ileum appears unremarkable. No MR findings terminal ileitis or enteritis. There is large proximal colonic fecal loading. Loss of haustration is is seen in descending and sigmoid colon. No active inflammation is currently identified. Prior CT inflammatory changes are not seen. Body wall: Unremarkable Pelvis: No perianal abscess. Bladder is unremarkable. Reproductive organs are unremarkable, partially evaluated on this study. Bones: No acute sacroiliac inflammation. No aggressive appearing osseous abnormality IMPRESSION: No evidence of active enteritis or colitis. Loss of haustration seen in the distal colon, probably from prior inflammation. There is large proximal colonic fecal loading. Terminal ileum appears unremarkable on MRI. Other findings above. Dictated by: Saud Conklin M.D. on 07/28/2025 at 16:08 Approved by: Saud Conklin M.D. on 07/28/2025 at 16:15
== END ==
LOC: MRI 12:52
PROVIDERS: PCP Family Medicine; Referring Provider Registered Nurse; Visit Provider Registered Nurse
DX: K52.9 Noninfective gastroenteritis and colitis, unspecified (principal); N82.3 Fistula of vagina to large intestine
CPT/HCPCS: 72197; 74183; A9579

== ENCOUNTER → 2025-07-31 19:06 | Outpatient (CLI) | payer OTHER, SELFPAY ==
--- NOTE | 2025-07-31 | DI.MRI.S_ITS ---
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 Optional long- and short-axis uterine nonbreath-hold T2 FSE through the uterus. Sagittal or axial dynamic VIBE during administration of contrast. Post-contrast axial or coronal VIBE/2-D FLASH with fat saturation from the iliac crests to the symphysis. Optional diffusion weighted imaging and ADC may be performed. COMPARISON: [facility], MR, MR ENTEROGRAPHY PROTOCOL, 07/28/2025, 14:11. [facility], CT, CT ABDOMEN PELVIS W CON, 05/20/2025, 13:32. FINDINGS: Image quality: Excellent. Uterus: Uterus is normal in size. Endometrium is normal in thickness. Junctional zone is normal in thickness at 12 mm or less. There is a clear fat pain between the vagina and the bowel. Adnexa: Both ovaries are normal in size, without suspicious cystic or solid lesions. Urinary system: Bladder wall is normal in thickness. Distal ureters are non distended. Urethra appears normal in morphology. Nodes and vessels: No pelvic or inguinal adenopathy by size criteria. Iliac vessels are normal in size. Bowel and peritoneum: No pathologic free pelvic fluid. Inferior colon and small bowel loops are normal in caliber. No evidence of active inflammatory bowel disease or penetrating disease Soft tissues: No inguinal hernias. No findings of pelvic floor incompetence in the absence of provocation. Bones: Marrow demonstrates normal overall signal. IMPRESSION: No evidence of fistula. If there remains a high clinical concern, consider fluoroscopic barium enema. Dictated by: Moo Monteiro M.D. on 08/01/2025 at 7:53 Approved by: Moo Monteiro M.D. on 08/01/2025 at 8:12
== END ==
PROVIDERS: PCP Family Medicine; Referring Provider Registered Nurse; Visit Provider Registered Nurse
DX: K52.9 Noninfective gastroenteritis and colitis, unspecified (principal); N82.3 Fistula of vagina to large intestine
CPT/HCPCS: 72197; A9579